=== PATIENT | male | born 1945 | race Caucasian/White ===

== ENCOUNTER 2018-11-12 10:01 | Emergency (ER) | payer MEDICARE ==
[~2018-11-12 10:01] MED LIST: ALEN70TA10 PO; ATOR40TA69 PO; CALC600T12 PO; CHOL100044 PO; FLUT1AER IH; GLIP1TAB5 PO; GLUC100019 PO; ISOS60TA4 PO; MAGN400T40 PO; METOPROLOL ER PO; MONT10TA24 PO; MULT-40 PO; OMEP20CA10 PO; SERT25TA5 PO; TAMS0.4C32 PO; TIOT4MIS5 IH
[2018-11-12] MEDS ORDERED: ONDANSETRON HCL 4 MG/2 ML VIAL ONE (10:49)
[2018-11-12] MEDS ORDERED: MORPHINE SULFATE 4 MG/1ML SYG ONE ×2 (10:49→12:16)
[2018-11-12] MEDS ORDERED: KETOROLAC TROMETHAMINE 15MG/ML ONE (10:49)
== END 2018-11-12 12:28 | disposition home or self-care (01) ==
LOC: EDH 10:01
DX: S13.4XXA Sprain of ligaments of cervical spine, initial encounter (principal); M50.30 Other cervical disc degeneration, unspecified cervical region; E78.5 Hyperlipidemia, unspecified; I25.10 Atherosclerotic heart disease of native coronary artery without angina pectoris; I10 Essential (primary) hypertension; E11.9 Type 2 diabetes mellitus without complications; Z90.49 Acquired absence of other specified parts of digestive tract; Z87.891 Personal history of nicotine dependence; Z88.0 Allergy status to penicillin; X50.0XXA Overexertion from strenuous movement or load, initial encounter; Y93.89 Activity, other specified; Y92.89 Other specified places as the place of occurrence of the external cause; Y99.8 Other external cause status
CPT/HCPCS: 72125; 93005; 96374; 96375; 96376; 99284; J1885; J2270 ×2; J2405

== ENCOUNTER 2018-11-25 10:55 | Emergency (ER) | payer MEDICARE ==
[2018-11-25 11:31] LABS: BASOPHILS % (AUTO) 0.7 % (0.0-5.0); HEMATOCRIT 26.9 % (42-54); LYMPHOCYTES % (AUTO) 19.6 % (21.0-51.0); MEAN CORPUSCULAR HEMOGLOBIN 25.3 pg (27.0-33.0); MEAN CORPUSCULAR HGB CONC 31.2 g/dL (32.0-36.0); MEAN CORPUSCULAR VOLUME 81.1 fL (79-99); MONOCYTES % (AUTO) 9.1 % (3.0-13.0); NEUTROPHILS % (AUTO) 68.6 % (40.0-77.0); PLATELET COUNT (AUTO) 317 K/uL (130-400); RED BLOOD CELL COUNT(AUTO) 3.31 MIL/uL (4.50-6.20); RED CELL DISTRIBUTION WIDTH 16.5 % (11.0-15.5); WHITE BLOOD COUNT (AUTO) 8.1 K/uL (4.8-10.8)
[2018-11-25] MEDS ORDERED: DEXAMETHASONE SOD PHOSPHATE 10MG/ML 1ML VIAL ONE (11:49)
[2018-11-25] MEDS ORDERED: LEVOFLOXACIN 500 MG/D5W 100 ML 100 ML ONE (11:49)
[2018-11-25 11:51] LABS: CREATININE 1.3 mg/dL (0.5-1.5); POTASSIUM 4.5 mmol/L (3.5-5.1)
[2018-11-25 11:55] LABS: ALBUMIN 3.2 g/dL (3.5-5.0); BILIRUBIN,TOTAL 0.3 mg/dL (0.2-1.0); TOTAL PROTEIN, SERUM 6.9 g/dL (6.0-8.3)
[2018-11-25] MEDS ORDERED: IPRATROPIUM/ALBUTEROL SULFATE 3 ML SOLUTION IH ONE (11:56)
[2018-11-25 12:09] LABS: CREATINE KINASE, TOTAL 53 U/L (21-232); MYOGLOBIN 67 ng/mL (10-92); TROPONIN I < 0.04 ng/mL (0.00-0.06)
[2018-11-25 12:13] LABS: ABG BASE EXCESS 3.8 mmol/L (-2.0-3.0); ABG HCO3 28.6 mmol/L (21.0-28.0); ABG OXYGEN SATURATION 95.5 % (95.0-99.0); ABG PCO2 45 mmHg (35-48)
== END 2018-11-25 15:22 | disposition home or self-care (01) ==
LOC: EDH 10:55
DX: J44.1 Chronic obstructive pulmonary disease with (acute) exacerbation (principal); I10 Essential (primary) hypertension; E11.9 Type 2 diabetes mellitus without complications; E78.5 Hyperlipidemia, unspecified; I25.10 Atherosclerotic heart disease of native coronary artery without angina pectoris; Z88.0 Allergy status to penicillin; Z87.891 Personal history of nicotine dependence; Z90.49 Acquired absence of other specified parts of digestive tract; Z95.1 Presence of aortocoronary bypass graft; Z98.890 Other specified postprocedural states
CPT/HCPCS: 36415; 36600; 71045; 80053; 82435; 82550; 82803; 82947; 83605; 83874; 83880; 84132; 84295; 84484; 85018; 85025; 87040 ×2; 93005; 94640; 96365; 96366; 96375; 99285; J1100; J1956

== ENCOUNTER 2019-12-05 06:10 | Day surgery (SDC) | payer MEDICARE ==
[2019-12-03 11:07] VITALS: BP 109/62
[2019-12-05] VITALS (10 sets, daily range): BP systolic 121–164; BP diastolic 53–84
[~2019-12-05] VITALS: Ht 175.3 cm; Wt 80.3 kg
[~2019-12-05 06:10] MED LIST changes: +ASPI-556 PO; +BUDE0.5A3 IH; -CALC600T12 PO; -CHOL100044 PO; -FLUT1AER IH; +FORM20VI2 IH; +GLUC-172 PO; -GLUC100019 PO; +LEVOFLOXACIN 500 MG/D5W 100 ML 100 ML IV SCH; +METO-391 PO; -METOPROLOL ER PO; -MONT10TA24 PO; +MONT10TA26 PO; -OMEP20CA10 PO; +PANT40TA25 PO; -SERT25TA5 PO; +SERT50TA12 PO; +UBID100C10 PO; +VITA1TAB39 PO
[2019-12-05] MEDS ORDERED: SODIUM CHLORIDE 0.9% 1000ML 1,000 ML IV ONE (07:20)
[2019-12-05] MEDS ORDERED: ROCURONIUM 10MG/1ML SYR 10 MG/ML ML ONE (07:53)
[2019-12-05] MEDS ORDERED: SUCCINYLCHOLINE CHLORIDE 20 MG/ML 10 ML VIAL ONE (07:53)
[2019-12-05] MEDS ORDERED: FENTANYL CITRATE PF 50 MCG/1 ML 2ML VIAL ONE (07:53)
[2019-12-05] MEDS ORDERED: LIDOCAINE PF 2% 5ML ABBOJECT ONE (07:53)
[2019-12-05] MEDS ORDERED: PROPOFOL 10 MG/ML 20ML VIAL IV ONE (07:53)
[2019-12-05] MEDS ORDERED: EPHEDRINE SULFATE 50 MG/ML AMPULE ONE (08:27)
[2019-12-05] MEDS ORDERED: GLYCOPYRROLATE 1 MG/5 ML SYRINGE ONE ×2 (08:32→09:07)
[2019-12-05] MEDS ORDERED: NEOSTIGMINE 5MG/5ML SYR IV ONE (09:07)
[2019-12-05] MEDS ORDERED: PHENAZOPYRIDINE HCL 200 MG TABLET ONE (10:17)
== END 2019-12-05 11:18 | disposition home or self-care (01) ==
LOC: DAH 06:10
PROVIDERS: ATTEND Urology
DX: C67.0 Malignant neoplasm of trigone of bladder (principal); Z11.59 Encounter for screening for other viral diseases; C67.4 Malignant neoplasm of posterior wall of bladder; C17.0 Malignant neoplasm of duodenum; E11.9 Type 2 diabetes mellitus without complications; I25.10 Atherosclerotic heart disease of native coronary artery without angina pectoris; K21.9 Gastro-esophageal reflux disease without esophagitis; J44.9 Chronic obstructive pulmonary disease, unspecified; F41.9 Anxiety disorder, unspecified; I25.2 Old myocardial infarction; Z88.0 Allergy status to penicillin; Z79.899 Other long term (current) drug therapy; Z98.890 Other specified postprocedural states; Z87.891 Personal history of nicotine dependence; Z95.0 Presence of cardiac pacemaker; Z90.49 Acquired absence of other specified parts of digestive tract; Z79.84 Long term (current) use of oral hypoglycemic drugs; Z82.49 Family history of ischemic heart disease and other diseases of the circulatory system; Z83.3 Family history of diabetes mellitus; Z82.5 Family history of asthma and other chronic lower respiratory diseases
CPT/HCPCS: 36415; 52234; 82948 ×2; 96365; A4213; A4215; A4221; A4222; A4223 ×2; A4314; A4354; A4510; A4600; A4663; A6260; J0330; J1956; J2001; J2704; J2710; J3490 ×3; J7030; J7120; U0003; J3010

== ENCOUNTER 2020-09-09 07:15 | Observation (INO) | payer MEDICARE ==
[~2020-09-09] VITALS: Ht 175.3 cm; Wt 80.1 kg
[2020-09-09] MEDS: APIXABAN 5 MG TABLET PO SCH (07:00)
[~2020-09-09 07:15] MED LIST changes: +ALBU18HF7 IH; -ALEN70TA10 PO; +ALEN70TA80 PO; +CALC-1105 PO; +CYAN500011 PO; -ISOS60TA4 PO; +ISOS60TA77 PO; -LEVOFLOXACIN 500 MG/D5W 100 ML 100 ML IV SCH; -MAGN400T40 PO; +MAGN500C15 PO; +MONT-39 PO; -MONT10TA26 PO; -PANT40TA25 PO; +PANT40TA54 PO; +SERT-439 PO; -SERT50TA12 PO; +VITAMIN D3 PO
[2020-09-09] MEDS ORDERED: SOLU-MEDROL 125MG VIAL ONE (07:34)
[2020-09-09] MEDS ORDERED: LEVOFLOXACIN 500 MG/D5W 100 ML 100 ML ONE (07:34)
[2020-09-09] MEDS ORDERED: ACETAMINOPHEN 325 MG TAB ONE (07:38)
[2020-09-09 08:00] LABS: BASOPHILS % (AUTO) 0.2 % (0.0-5.0); EOSINOPHILS % (AUTO) 1.9 % (0.0-8.0); HEMATOCRIT 32.2 % (42-54); LYMPHOCYTES % (AUTO) 5.8 % (21.0-51.0); MEAN CORPUSCULAR HEMOGLOBIN 31.1 pg (27.0-33.0); MEAN CORPUSCULAR HGB CONC 31.4 g/dL (32.0-36.0); MEAN CORPUSCULAR VOLUME 99.1 fL (79-99); MONOCYTES % (AUTO) 4.9 % (3.0-13.0); NEUTROPHILS % (AUTO) 86.9 % (40.0-77.0); PLATELET COUNT (AUTO) 244 K/uL (130-400); RED BLOOD CELL COUNT(AUTO) 3.25 MIL/uL (4.50-6.20); RED CELL DISTRIBUTION WIDTH 13.2 % (11.0-15.5); WHITE BLOOD COUNT (AUTO) 15.1 K/uL (4.8-10.8)
[2020-09-09 08:10] LABS: INR 1.12 (0.85-1.15); PROTHROMBIN TIME 12.1 SEC (9.6-11.6)
[2020-09-09 08:11] LABS: PARTIAL THROMBOPLASTIN TIME 20.4 SEC (26.3-35.5)
[2020-09-09] MEDS ORDERED: IPRATROPIUM/ALBUTEROL SULFATE 3 ML SOLUTION IH ONE (08:18)
[2020-09-09 08:19] LABS: ALANINE AMINOTRANSFERASE 20 U/L (12-78); ALBUMIN 3.4 g/dL (3.5-5.0); ASPARTATE AMINOTRANSFERASE 13 U/L (10-37); BILIRUBIN,TOTAL 0.3 mg/dL (0.2-1.0); CARBON DIOXIDE 34 mmol/L (21-32); CHLORIDE 98 mmol/L (101-111); CREATINE KINASE, TOTAL 35 U/L (21-232); CREATININE 1.3 mg/dL (0.5-1.5); GLOMERULAR FILTR. RATE CALC 58 mL/min (>60); GLUCOSE,RANDOM 153 mg/dL (70-105); LIPASE 85 U/L (114-286); MYOGLOBIN 49 ng/mL (10-92); POTASSIUM 4.4 mmol/L (3.5-5.1); SODIUM SERUM 139 mmol/L (136-145); TROPONIN I < 0.04 ng/mL (0.00-0.06); UREA NITROGEN, BLOOD 16 mg/dL (7-18)
[2020-09-09 08:21] LABS: B-TYPE NATRIURETIC PEPTIDE 152 pg/mL (0-100)
[2020-09-09] MEDS ORDERED: ALBUTEROL INHALER 90MCG/INH IH ONE (08:26)
[2020-09-09 09:22] LABS: APPEARANCE,URINE Turbid (CLEAR); BILIRUBIN,URINE Negative (NEGATIVE); COLOR,URINE Yellow (YELLOW); GLUCOSE, URINE (UA) Negative (NEGATIVE); KETONES,URINE Negative (NEGATIVE); LEUKOCYTE ESTERASE ,URINE Negative (NEGATIVE); NITRATE,URINE Negative (NEGATIVE); OCCULT BLOOD,URINE Negative (NEGATIVE); PROTEIN,URINE Negative (NEGATIVE); UROBILINOGEN,URINE 0.2 mg/dL (0.2-1.0)
[2020-09-09] MEDS ORDERED: DIPHENHYDRAMINE HCL 25 MG CAPSULE PO PRN (12:00)
[2020-09-09] MEDS ORDERED: MAG/ALUM/SIMETH 30 ML UDCUP PO PRN (12:00)
[2020-09-09] MEDS: CEFTRIAXONE 1G VIAL IV SCH (12:00)
[2020-09-09] MEDS ORDERED: ACETAMINOPHEN 325 MG TAB PO PRN ×2 (12:00)
[2020-09-09] MEDS ORDERED: LACTULOSE 20 GM/30 ML UDCUP PO PRN (12:00)
[2020-09-09] MEDS ORDERED: MORPHINE 2 MG SYG IV PRN (12:00)
[2020-09-09] MEDS ORDERED: NITROGLYCERIN 0.4 MG SL TAB SL PRN (12:00)
[2020-09-09] MEDS ORDERED: KCL 20 MEQ ERTAB PO PRN (12:00)
[2020-09-09] MEDS ORDERED: POTASSIUM CHLORIDE 10% ELIXIR 20 MEQ/15 ML UDCUP PO PRN (12:00)
[2020-09-09] MEDS ORDERED: ZOLPIDEM TARTRATE 5 MG TAB PO PRN (12:00)
[2020-09-09] MEDS ORDERED: POTASSIUM CHLORIDE 20MEQ/100ML 100 ML IV PRN (12:00)
[2020-09-09] MEDS ORDERED: GUAIFENESIN-DM 200/20 MG 10 ML PO PRN (12:00)
[2020-09-09] MEDS ORDERED: LIDOCAINE HCL-MPF 1% 2ML VIAL IV PRN (12:00)
[2020-09-09] MEDS ORDERED: ONDANSETRON 4MG INJ IV PRN (12:00)
[2020-09-09] MEDS ORDERED: HYDRALAZINE 20MG/ML VIAL IV PRN (12:00)
[2020-09-09] MEDS ORDERED: ACETAMINOPHEN WITH CODEINE 1 TAB TAB PO PRN (12:00)
[2020-09-09] MEDS ORDERED: DiphenhydrAMINE HCL 50 MG/ML VIAL IV PRN (12:00)
[2020-09-09] MEDS: SOLU-MEDROL 125MG VIAL IV SCH (12:00)
[2020-09-09] MEDS ORDERED: MAGNESIUM 2GM PREMIX 50ML 50 ML IV PRN (12:00)
[2020-09-09] MEDS ORDERED: SOLU-MEDROL 40MG VIAL ONE (12:54)
[2020-09-09] MEDS ORDERED: METRONIDAZOLE 500MG/100ML BAG 100 ML ONE (12:55)
[2020-09-09] MEDS ORDERED: CEFTRIAXONE 1G VIAL ONE (12:55)
[2020-09-09] MEDS ORDERED: BENZONATATE 100 MG CAPSULE PO ONE (12:55)
[2020-09-09] MEDS: METRONIDAZOLE 500 MG TABLET PO SCH ×2 (14:00→21:59)
[2020-09-09] MEDS: BENZONATATE 100 MG CAPSULE PO SCH ×2 (14:00→21:59)
[2020-09-09 19:01] VITALS: BP 133/61
[2020-09-09] MEDS ORDERED: APIX5TAB PO (19:54)
[2020-09-09] MEDS ORDERED: CHOL200059 PO (19:54)
[2020-09-09] MEDS ORDERED: MULT-1258 PO (19:54)
[2020-09-09 21:00] VITALS: BP 103/50
[2020-09-09] MEDS: IPRATROPIUM/ALBUTEROL SULFATE 3 ML SOLUTION IH SCH (21:00)
[2020-09-09] MEDS: FORMOTEROL FUMARATE 20 MCG/2 ML IH SCH (21:00)
[2020-09-09] MEDS: MONTELUKAST SODIUM 10 MG TAB PO SCH (21:59)
[2020-09-09] MEDS: TAMSULOSIN HCL 0.4 MG CAP.ER.24H PO SCH (21:59)
[2020-09-09] MEDS: PANTOPRAZOLE 40 MG TAB DR PO SCH (21:59)
[2020-09-09] MEDS: ATORVASTATIN 40 MG TABLET PO SCH (21:59)
[2020-09-09] MEDS: FAMOTIDINE 20MG TAB PO SCH (21:59)
[2020-09-09] MEDS: ASPIRIN 81 MG EC TAB PO SCH (21:59)
[2020-09-09] MEDS: LEVOFLOXACIN 500 MG/D5W 100 ML 100 ML IV SCH (22:01)
[2020-09-09] MEDS: INSULIN HUMULIN R 100 UNIT/ML 3ML SQ SCH (22:27)
[2020-09-09 23:48] VITALS: BP 133/40
[2020-09-10] MEDS ORDERED: IPRATROPIUM/ALBUTEROL SULFATE 3 ML SOLUTION IH SCH
[2020-09-10] MEDS: SOLU-MEDROL 125MG VIAL IV SCH ×3 (00:46→23:39)
[2020-09-10] MEDS: IPRATROPIUM/ALBUTEROL SULFATE 3 ML SOLUTION IH SCH ×6 (02:19→22:57)
[2020-09-10 04:38] VITALS: BP 125/42
[2020-09-10 04:39] LABS: BASOPHILS % (AUTO) 0.1 % (0.0-5.0); HEMATOCRIT 27.6 % (42-54); LYMPHOCYTES % (AUTO) 3.5 % (21.0-51.0); MEAN CORPUSCULAR HEMOGLOBIN 30.9 pg (27.0-33.0); MEAN CORPUSCULAR HGB CONC 32.2 g/dL (32.0-36.0); MEAN CORPUSCULAR VOLUME 95.8 fL (79-99); MONOCYTES % (AUTO) 3.3 % (3.0-13.0); NEUTROPHILS % (AUTO) 92.7 % (40.0-77.0); PLATELET COUNT (AUTO) 214 K/uL (130-400); RED BLOOD CELL COUNT(AUTO) 2.88 MIL/uL (4.50-6.20); RED CELL DISTRIBUTION WIDTH 13.2 % (11.0-15.5); WHITE BLOOD COUNT (AUTO) 12.9 K/uL (4.8-10.8)
[2020-09-10 04:56] LABS: ALBUMIN 3.1 g/dL (3.5-5.0); BILIRUBIN,TOTAL 0.3 mg/dL (0.2-1.0); CREATININE 1.3 mg/dL (0.5-1.5); POTASSIUM 4.1 mmol/L (3.5-5.1); TOTAL PROTEIN, SERUM 6.5 g/dL (6.0-8.3)
[2020-09-10 05:00] LABS: B-TYPE NATRIURETIC PEPTIDE 323 pg/mL (0-100)
[2020-09-10] MEDS: INSULIN HUMULIN R 100 UNIT/ML 3ML SQ SCH ×4 (06:27→21:00)
[2020-09-10] MEDS: BUDESONIDE 0.5 MG/2 ML INH IH SCH ×2 (07:09→19:26)
[2020-09-10 07:16] LABS: ABG BASE EXCESS 6.1 mmol/L (-2.0-3.0); ABG HCO3 31.9 mmol/L (21.0-28.0); ABG PCO2 51 mmHg (35-48)
[2020-09-10 08:00] VITALS: BP 112/50
[2020-09-10] MEDS: APIXABAN 5 MG TABLET PO SCH (09:00)
[2020-09-10] MEDS ORDERED: TIOTROPIUM BROMIDE IH SCH (09:00)
[2020-09-10] MEDS: FORMOTEROL FUMARATE 20 MCG/2 ML IH SCH ×2 (09:00→21:00)
[2020-09-10] MEDS: PANTOPRAZOLE 40 MG TAB DR PO SCH ×2 (10:53→21:10)
[2020-09-10] MEDS: BENZONATATE 100 MG CAPSULE PO SCH ×3 (10:53→21:10)
[2020-09-10] MEDS: METOPROLOL SUCCINATE 50 MG TAB.SR.24H PO SCH (10:54)
[2020-09-10] MEDS: SERTRALINE HCL 50 MG TABLET PO SCH (10:54)
[2020-09-10] MEDS: FAMOTIDINE 20MG TAB PO SCH ×2 (10:54→21:10)
[2020-09-10] MEDS: ISOSORBIDE MONO 60MG SR TAB PO SCH (10:54)
[2020-09-10] MEDS: CEFTRIAXONE 1G VIAL IV SCH (10:55)
[2020-09-10] MEDS: METRONIDAZOLE 500 MG TABLET PO SCH ×3 (11:00→21:10)
[2020-09-10] MEDS: ENOXAPARIN SODIUM 40 MG/0.4 ML SYRINGE SQ SCH (11:01)
[2020-09-10 12:00] VITALS: BP 139/53
[2020-09-10] MEDS ORDERED: CLONAZEPAM 0.5 MG TABLET PO PRN (13:00)
[2020-09-10 16:00] VITALS: BP 126/49
[2020-09-10 20:00] VITALS: BP 112/44
[2020-09-10] MEDS: LEVOFLOXACIN 500 MG/D5W 100 ML 100 ML IV SCH (21:10)
[2020-09-10] MEDS: ASPIRIN 81 MG EC TAB PO SCH (21:10)
[2020-09-10] MEDS: TAMSULOSIN HCL 0.4 MG CAP.ER.24H PO SCH (21:10)
[2020-09-10] MEDS: ATORVASTATIN 40 MG TABLET PO SCH (21:10)
[2020-09-10] MEDS: MONTELUKAST SODIUM 10 MG TAB PO SCH (21:10)
[2020-09-11] VITALS: BP 106/49
[2020-09-11] MEDS: IPRATROPIUM/ALBUTEROL SULFATE 3 ML SOLUTION IH SCH ×4 (02:11→14:05)
[2020-09-11 04:00] VITALS: BP 111/54
[2020-09-11 05:15] LABS: HEMATOCRIT 26.3 % (42-54); MEAN CORPUSCULAR HEMOGLOBIN 31.1 pg (27.0-33.0); MEAN CORPUSCULAR HGB CONC 31.9 g/dL (32.0-36.0); MEAN CORPUSCULAR VOLUME 97.4 fL (79-99); RED BLOOD CELL COUNT(AUTO) 2.7 MIL/uL (4.50-6.20); RED CELL DISTRIBUTION WIDTH 13.7 % (11.0-15.5); WHITE BLOOD COUNT (AUTO) 12.1 K/uL (4.8-10.8)
[2020-09-11 05:23] LABS: CREATININE 1.4 mg/dL (0.5-1.5); POTASSIUM 4.4 mmol/L (3.5-5.1)
[2020-09-11] MEDS: BUDESONIDE 0.5 MG/2 ML INH IH SCH (06:38)
[2020-09-11] MEDS: INSULIN HUMULIN R 100 UNIT/ML 3ML SQ SCH ×3 (06:55→16:06)
[2020-09-11 07:26] VITALS: BP 117/51
[2020-09-11] MEDS: SERTRALINE HCL 50 MG TABLET PO SCH (07:30)
[2020-09-11] MEDS: METOPROLOL SUCCINATE 50 MG TAB.SR.24H PO SCH (07:30)
[2020-09-11] MEDS: BENZONATATE 100 MG CAPSULE PO SCH ×2 (07:30→14:15)
[2020-09-11] MEDS: PANTOPRAZOLE 40 MG TAB DR PO SCH (07:30)
[2020-09-11] MEDS: FAMOTIDINE 20MG TAB PO SCH (07:31)
[2020-09-11] MEDS: ISOSORBIDE MONO 60MG SR TAB PO SCH (07:31)
[2020-09-11] MEDS: METRONIDAZOLE 500 MG TABLET PO SCH ×2 (07:31→14:15)
[2020-09-11] MEDS: ENOXAPARIN SODIUM 40 MG/0.4 ML SYRINGE SQ SCH ×2 (07:32→07:38)
[2020-09-11] MEDS ORDERED: PHARMACY COMMUNICATION MISC SCH (08:00)
[2020-09-11] MEDS: FORMOTEROL FUMARATE 20 MCG/2 ML IH SCH (09:00)
[2020-09-11] MEDS: APIXABAN 5 MG TABLET PO SCH (09:09)
[2020-09-11] MEDS: SOLU-MEDROL 125MG VIAL IV SCH (10:56)
[2020-09-11] MEDS: CEFTRIAXONE 1G VIAL IV SCH (10:56)
[2020-09-11 11:45] VITALS: BP 124/64
[2020-09-11 16:00] VITALS: BP 117/58
== END 2020-09-11 17:22 | disposition home or self-care (01) ==
LOC: EDH 07:15 → EDHIP 11:58 → 4CH 16:25
PROVIDERS: ADMIT Internal Medicine; ATTEND Internal Medicine
DX: J96.21 Acute and chronic respiratory failure with hypoxia (principal); Z20.822 Contact with and (suspected) exposure to COVID-19; K21.9 Gastro-esophageal reflux disease without esophagitis; J69.0 Pneumonitis due to inhalation of food and vomit; J44.9 Chronic obstructive pulmonary disease, unspecified; I25.10 Atherosclerotic heart disease of native coronary artery without angina pectoris; I25.2 Old myocardial infarction; I11.0 Hypertensive heart disease with heart failure; I50.9 Heart failure, unspecified; I48.91 Unspecified atrial fibrillation; E78.5 Hyperlipidemia, unspecified; N40.0 Benign prostatic hyperplasia without lower urinary tract symptoms; F32.9 Major depressive disorder, single episode, unspecified; D64.9 Anemia, unspecified; E11.9 Type 2 diabetes mellitus without complications; F41.9 Anxiety disorder, unspecified; Z87.891 Personal history of nicotine dependence; Z85.068 Personal history of other malignant neoplasm of small intestine; Z92.3 Personal history of irradiation; Z92.21 Personal history of antineoplastic chemotherapy; Z85.51 Personal history of malignant neoplasm of bladder; Z99.81 Dependence on supplemental oxygen; Z95.5 Presence of coronary angioplasty implant and graft; Z90.49 Acquired absence of other specified parts of digestive tract; Z95.0 Presence of cardiac pacemaker; Z79.01 Long term (current) use of anticoagulants; Z79.51 Long term (current) use of inhaled steroids; Z79.899 Other long term (current) drug therapy; Z88.0 Allergy status to penicillin
CPT/HCPCS: 36415 ×3; 36600 ×2; 71045 ×2; 80048; 80053 ×2; 81003; 82550; 82803; 82948 ×9; 83605; 83690; 83735; 83874; 83880 ×2; 84145; 84484; 85025 ×2; 85027; 85610; 85730; 86900; 86901; 87040 ×2; 87071; 87088; 87205; 87426; 92610; 93005; 94640 ×11; 94664; 96365; 96366; 96372; 96375; 96376 ×2; 99285; A4221; A4222; A4223; A4663; G0378 ×50; J0696 ×4; J1650; J1815 ×4; J1956 ×3; J2920; J2930 ×5; J3490

== ENCOUNTER 2020-09-14 05:49 | Day surgery (SDC) | payer MEDICARE ==
[~2020-09-14] VITALS: Ht 175.3 cm; Wt 79.8 kg
[~2020-09-14 05:49] MED LIST changes: -ALBU18HF7 IH; +APIX5TAB PO; +CHOL200059 PO; -MONT-39 PO; +MONT10TA32 PO; +MULT-1258 PO; -MULT-40 PO; -VITAMIN D3 PO
[2020-09-14] MEDS ORDERED: SODIUM CHLORIDE 0.9% 1000ML 1,000 ML IV ONE (06:17)
[2020-09-14 06:40] VITALS: BP 116/61
[2020-09-14] MEDS ORDERED: PROPOFOL 10 MG/ML 20ML VIAL IV ONE ×2 (07:23→07:52)
[2020-09-14] MEDS ORDERED: LIDOCAINE HCL 1% 20 ML VIAL ONE (07:23)
[2020-09-14] MEDS ORDERED: SUCCINYLCHOLINE 200MG/10ML SYR ONE (07:34)
[2020-09-14] MEDS ORDERED: SIMETHICONE 40 MG/0.6 ML ML ONE (07:35)
[2020-09-14] MEDS ORDERED: PHENYLEPHRINE HCL 10 MG/ML 1ML VIAL IV ONE (07:41)
[2020-09-14] MEDS ORDERED: EPHEDRINE SULFATE 50 MG/ML AMPULE ONE (07:46)
[2020-09-14 08:05] VITALS: BP 102/64
[2020-09-14 08:10] VITALS: BP 109/56
[2020-09-14 08:15] VITALS: BP 109/53
[2020-09-14 08:20] VITALS: BP 109/53
== END 2020-09-14 08:37 | disposition home or self-care (01) ==
LOC: ENDO 05:49 → DAH 05:49 → ENDO 08:37
PROVIDERS: ATTEND Internal Medicine Gastroenterology
DX: R63.4 Abnormal weight loss (principal); K31.5 Obstruction of duodenum; Z20.822 Contact with and (suspected) exposure to COVID-19; K21.9 Gastro-esophageal reflux disease without esophagitis; I11.0 Hypertensive heart disease with heart failure; I50.9 Heart failure, unspecified; E11.9 Type 2 diabetes mellitus without complications; I25.10 Atherosclerotic heart disease of native coronary artery without angina pectoris; J44.9 Chronic obstructive pulmonary disease, unspecified; E78.49 Other hyperlipidemia; F41.9 Anxiety disorder, unspecified; F32.9 Major depressive disorder, single episode, unspecified; M81.0 Age-related osteoporosis without current pathological fracture; M19.90 Unspecified osteoarthritis, unspecified site; Z85.068 Personal history of other malignant neoplasm of small intestine; Z98.890 Other specified postprocedural states; Z98.49 Cataract extraction status, unspecified eye; Z95.5 Presence of coronary angioplasty implant and graft; Z79.01 Long term (current) use of anticoagulants; Z79.82 Long term (current) use of aspirin; Z79.899 Other long term (current) drug therapy; Z88.0 Allergy status to penicillin
CPT/HCPCS: 43239; 82948 ×2; A4215; A4222; A4223; A4620; A4657; A4663; A5120; C9803; J0330; J2370; J2704 ×2; J3490; J7030; U0003

== ENCOUNTER 2020-10-14 11:57 | Inpatient (IN) | payer MEDICARE ==
[~2020-10-14] VITALS: Ht 175.3 cm; Wt 81.8 kg
[~2020-10-14 11:57] MED LIST changes: +MONT-39 PO; -MONT10TA32 PO
[2020-10-14 12:29] LABS: BASOPHILS % (AUTO) 0.6 % (0.0-5.0); HEMATOCRIT 27.3 % (42-54); MEAN CORPUSCULAR HEMOGLOBIN 29.1 pg (27.0-33.0); MEAN CORPUSCULAR VOLUME 96.8 fL (79-99); MONOCYTES % (AUTO) 10.1 % (3.0-13.0); NEUTROPHILS % (AUTO) 70.7 % (40.0-77.0); PLATELET COUNT (AUTO) 363 K/uL (130-400); RED BLOOD CELL COUNT(AUTO) 2.82 MIL/uL (4.50-6.20); WHITE BLOOD COUNT (AUTO) 8.1 K/uL (4.8-10.8)
[2020-10-14 12:39] LABS: INR 1.1 (0.85-1.15); PROTHROMBIN TIME 11.9 SEC (9.6-11.6)
[2020-10-14 12:41] LABS: PARTIAL THROMBOPLASTIN TIME 27.3 SEC (26.3-35.5)
[2020-10-14] MEDS ORDERED: PANTOPRAZOLE 40 MG/VIAL ONE ×3 (12:41→17:08)
[2020-10-14] MEDS ORDERED: 0.9% NACL 500ML IV.SOLN 1,000 ML IV ONE (12:42)
[2020-10-14 12:49] LABS: CREATININE 1.3 mg/dL (0.5-1.5); POTASSIUM 4.8 mmol/L (3.5-5.1)
[2020-10-14 12:54] LABS: BILIRUBIN,TOTAL 0.1 mg/dL (0.2-1.0)
[2020-10-14] MEDS ORDERED: ONDANSETRON 4MG INJ IVP PRN (14:30)
[2020-10-14] MEDS ORDERED: PANTOPRAZOLE 40 MG/VIAL IVP SCH (14:30)
[2020-10-14] MEDS ORDERED: MORPHINE 2 MG SYG IVP PRN (14:30)
[2020-10-14] MEDS ORDERED: PANTOPRAZOLE 40MG INJ 80 MG in 0.9%NACL 100ML 100 ML IVP SCH (14:30)
[2020-10-14] MEDS ORDERED: ACETAMINOPHEN 325 MG TAB PO PRN (14:30)
[2020-10-14] MEDS ORDERED: ACETAMINOPHEN 650 MG SUPPOSITORY RC PRN (14:30)
[2020-10-14] MEDS: 0.9%NACL 1000ML 1,000 ML IV SCH ×2 (14:30→22:30)
[2020-10-14] MEDS ORDERED: IPRATROPIUM/ALBUTEROL SULFATE 3 ML SOLUTION IH SCH (14:30)
[2020-10-14 14:44] LABS: HEMATOCRIT 26.2 % (42-54)
[2020-10-14 15:04] LABS: CREATINE KINASE, TOTAL 22 U/L (21-232); MYOGLOBIN 41 ng/mL (10-92); TROPONIN I < 0.04 ng/mL (0.00-0.06)
[2020-10-14 15:15] LABS: % IRON SATURATION 9.6 % (30-44)
[2020-10-14] MEDS ORDERED: 0.9%NACL 1000ML 1,000 ML IV ONE (15:39)
[2020-10-14 16:02] LABS: ABG BASE EXCESS 0.6 mmol/L (-2.0-3.0); ABG PCO2 50 mmHg (35-48)
[2020-10-14] MEDS ORDERED: 0.9%NACL 100ML 100 ML IV ONE (17:06)
[2020-10-14] MEDS ORDERED: PEG 3350/NA SULF,BICARB,CL/KCL 4000 ML SOLN PO SCH (17:45)
[2020-10-14] MEDS ORDERED: 0.9% NACL 250ML 250 ML IV ONE (18:24)
[2020-10-14] MEDS: IPRATROPIUM/ALBUTEROL SULFATE 3 ML SOLUTION IH SCH (18:25)
[2020-10-14 19:47] LABS: HEMATOCRIT 28.7 % (42-54)
[2020-10-14 20:21] LABS: CREATINE KINASE, TOTAL 26 U/L (21-232); MYOGLOBIN 36 ng/mL (10-92); TROPONIN I < 0.04 ng/mL (0.00-0.06)
[2020-10-14] MEDS: METOCLOPRAMIDE 10 MG/2 ML VIAL IVP SCH (21:00)
[2020-10-14] MEDS ORDERED: METOCLOPRAMIDE 10 MG/2 ML VIAL ONE (23:01)
[2020-10-15] VITALS (15 sets, daily range): BP systolic 101–144; BP diastolic 44–94
[2020-10-15] MEDS: IPRATROPIUM/ALBUTEROL SULFATE 3 ML SOLUTION IH SCH ×5 (00:35→23:56)
[2020-10-15 02:40] LABS: HEMATOCRIT 27.2 % (42-54)
[2020-10-15 02:59] LABS: CREATINE KINASE, TOTAL 30 U/L (21-232); MYOGLOBIN 41 ng/mL (10-92); TROPONIN I < 0.04 ng/mL (0.00-0.06)
[2020-10-15] MEDS: 0.9%NACL 1000ML 1,000 ML IV SCH (06:12)
[2020-10-15] MEDS ORDERED: PROPOFOL 10 MG/ML 20ML VIAL IV ONE (07:35)
[2020-10-15] MEDS ORDERED: LIDOCAINE HCL 1% 20 ML VIAL ONE (07:35)
[2020-10-15] MEDS: METOCLOPRAMIDE 10 MG/2 ML VIAL IVP SCH ×2 (09:16→21:48)
[2020-10-15 09:17] LABS: HEMATOCRIT 28.6 % (42-54)
[2020-10-15] MEDS ORDERED: SUB TO IPRATROPIUM 0.5MG/2.5ML PER P&T IH SCH (11:16)
[2020-10-15] MEDS: IRON SUCROSE COMPLEX 100 MG in 0.9%NACL 50ML 50 ML IV SCH (11:44)
[2020-10-15] MEDS: VITAMIN B COMPLEX 1 CAPSULE PO SCH (11:44)
[2020-10-15] MEDS: CA 600MG+VIT D 400 UNIT TAB 1 TAB TABLET PO SCH (11:44)
[2020-10-15] MEDS: MAGNESIUM OXIDE 400 MG TABLET PO SCH (11:44)
[2020-10-15] MEDS ORDERED: COMPOUND IV MISC 1 EACH IVSOLN MISC PRN (11:45)
[2020-10-15] MEDS ORDERED: GLIPIZIDE XL 2.5MG TAB PO SCH (17:00)
[2020-10-15] MEDS ORDERED: METFORMIN HCL 500 MG TAB.SR.24H PO SCH (17:00)
[2020-10-15] MEDS ORDERED: FORMOTEROL FUMARATE 20 MCG/2 ML IH SCH (18:00)
[2020-10-15] MEDS: BUDESONIDE 0.5 MG/2 ML INH IH SCH (18:22)
[2020-10-15] MEDS ORDERED: MONTELUKAST SODIUM 10 MG TAB PO SCH (21:00)
[2020-10-15] MEDS ORDERED: ATORVASTATIN 40 MG TABLET PO SCH (21:00)
[2020-10-15] MEDS ORDERED: TAMSULOSIN HCL 0.4 MG CAP.ER.24H PO SCH (21:00)
[2020-10-15] MEDS ORDERED: UBIDECARENONE 100 MG PO SCH (21:00)
[2020-10-15] MEDS: PANTOPRAZOLE 40 MG/VIAL IVP SCH (21:47)
[2020-10-15] MEDS: GLUCOSAMINE-CHONDROITIN PO SCH (21:48)
[2020-10-16] VITALS: BP 122/62
[2020-10-16 03:47] LABS: BASOPHILS % (AUTO) 0.7 % (0.0-5.0); EOSINOPHILS % (AUTO) 2.6 % (0.0-8.0); HEMATOCRIT 29.1 % (42-54); LYMPHOCYTES % (AUTO) 15.4 % (21.0-51.0); MEAN CORPUSCULAR HGB CONC 29.9 g/dL (32.0-36.0); MONOCYTES % (AUTO) 10.9 % (3.0-13.0); NEUTROPHILS % (AUTO) 69.7 % (40.0-77.0); PLATELET COUNT (AUTO) 317 K/uL (130-400); RED CELL DISTRIBUTION WIDTH 15.3 % (11.0-15.5); WHITE BLOOD COUNT (AUTO) 6.2 K/uL (4.8-10.8)
[2020-10-16 04:00] VITALS: BP 142/72
[2020-10-16 04:04] LABS: ALBUMIN 2.7 g/dL (3.5-5.0); BILIRUBIN,TOTAL 0.2 mg/dL (0.2-1.0); CREATININE 1.1 mg/dL (0.5-1.5); POTASSIUM 4.1 mmol/L (3.5-5.1); TOTAL PROTEIN, SERUM 5.9 g/dL (6.0-8.3)
[2020-10-16] MEDS: BUDESONIDE 0.5 MG/2 ML INH IH SCH (06:21)
[2020-10-16] MEDS: IPRATROPIUM/ALBUTEROL SULFATE 3 ML SOLUTION IH SCH (06:21)
[2020-10-16] MEDS: PANTOPRAZOLE 40 MG/VIAL IVP SCH (08:07)
[2020-10-16] MEDS: METOCLOPRAMIDE 10 MG/2 ML VIAL IVP SCH (08:07)
[2020-10-16] MEDS: MAGNESIUM OXIDE 400 MG TABLET PO SCH (08:07)
[2020-10-16] MEDS: CA 600MG+VIT D 400 UNIT TAB 1 TAB TABLET PO SCH (08:09)
[2020-10-16] MEDS: VITAMIN B COMPLEX 1 CAPSULE PO SCH (08:09)
[2020-10-16] MEDS: IRON SUCROSE COMPLEX 100 MG in 0.9%NACL 50ML 50 ML IV SCH (08:09)
[2020-10-16] MEDS: GLUCOSAMINE-CHONDROITIN PO SCH (08:09)
[2020-10-16] MEDS ORDERED: SUCR1TAB28 PO (08:57)
[2020-10-16] MEDS ORDERED: SUCRALFATE 1 GM TABLET PO SCH (09:00)
[2020-10-16] MEDS ORDERED: CHOLECALCIFEROL 50 MCG PO SCH (09:00)
[2020-10-16] MEDS ORDERED: MULTIVITAMIN WITH MINERALS TABLET PO SCH (09:00)
[2020-10-16] MEDS ORDERED: METOPROLOL SUCCINATE 50 MG TAB.SR.24H PO SCH (09:00)
[2020-10-16] MEDS ORDERED: ISOSORBIDE MONO 60MG SR TAB PO SCH (09:00)
[2020-10-16] MEDS ORDERED: SERTRALINE HCL 50 MG TABLET PO SCH (09:00)
[2020-10-16] MEDS ORDERED: CYANOCOBALAMIN (VITAMIN B-12) 1,000 MCG TABLET PO SCH (09:00)
[2020-10-16 09:01] VITALS: BP 138/43
[2020-10-16 10:30] VITALS: BP 107/58
== END 2020-10-16 11:15 | disposition home or self-care (01) | DRG 393 ==
LOC: EDH 11:57 → EDHIP 14:17 → 2DH 10-15 06:21
PROVIDERS: ADMIT Internal Medicine Critical Care Medicine; ATTEND Internal Medicine Critical Care Medicine
PROC: 30233N1 Transfusion of Nonautologous Red Blood Cells into Peripheral Vein, Percutaneous Approach (ICD-10-PCS; principal; 2020-10-14)
PROC: 0DJ08ZZ Inspection of Upper Intestinal Tract, Via Natural or Artificial Opening Endoscopic (ICD-10-PCS; 2020-10-15)
PROC: 0DBH8ZZ Excision of Cecum, Via Natural or Artificial Opening Endoscopic (ICD-10-PCS; 2020-10-15)
PROC: 0DBM8ZZ Excision of Descending Colon, Via Natural or Artificial Opening Endoscopic (ICD-10-PCS; 2020-10-15)
DX: K63.5 Polyp of colon (principal); K57.31 Diverticulosis of large intestine without perforation or abscess with bleeding; D62 Acute posthemorrhagic anemia; J96.11 Chronic respiratory failure with hypoxia; I48.91 Unspecified atrial fibrillation; Z79.01 Long term (current) use of anticoagulants; I25.10 Atherosclerotic heart disease of native coronary artery without angina pectoris; J44.9 Chronic obstructive pulmonary disease, unspecified; Z95.1 Presence of aortocoronary bypass graft; Z79.51 Long term (current) use of inhaled steroids; Z79.899 Other long term (current) drug therapy; Z85.028 Personal history of other malignant neoplasm of stomach; Z92.21 Personal history of antineoplastic chemotherapy; Z92.3 Personal history of irradiation; Z99.81 Dependence on supplemental oxygen; Z88.0 Allergy status to penicillin; Z20.822 Contact with and (suspected) exposure to COVID-19; J84.10 Pulmonary fibrosis, unspecified; K29.50 Unspecified chronic gastritis without bleeding; K31.89 Other diseases of stomach and duodenum; K31.84 Gastroparesis
CPT/HCPCS: 36415; 36600; 43235; 45380; 71045; 74176; 80053; 82550; 82803; 83540; 83550; 83605; 83690; 83874; 83880; 84484; 85014; 85018; 85025; 85610; 85730; 86850; 86900; 86901; 86923; 87426; 88305; 93005; 94640; 94664; A4606; C9113; G0378; J1756; J2704; J2765; J7030; J7040; J7050; P9016; U0003